=== PATIENT | female | born 1975 | race African-American/Black ===

== ENCOUNTER 2018-07-22 08:56 | Emergency (ER) | payer OTHER ==
--- NOTE | 2018-07-22 10:42 | RAD ---
FRadiograph chest one view: 07/22/2018 HISTORY: 42-year-old female with chest congestion. FINDINGS: The cardiac shadow appears enlarged. This is at least in part due to magnification, due to lordotic a ngulation positioning. There is no pulmonary venous congestion. Lungs are clear. No pneumothorax. Lat eral costophrenic angles are sharp. IMPRESSION: No acute pulmonary findings
[2018-07-22 10:43] LABS: #Eosinphils 0.1 thou/uL (0.0-0.7); #Monocytes 0.6 thou/uL (0.11-0.59); #Neutrophils 4.3 thou/uL (1.40-6.50); %Basophils 0.6 % (0.0-1.0); %Eosinophils 1.7 % (0.0-10.0); %Lymphocytes 28.2 % (21.0-51.0); %Monocytes 8.7 % (0.0-10.0); %Neutrophils 60.8 % (42.0-75.0); Hemoglobin 10.5 g/dL (12.0-16.0); Mean Corpuscular HGB CONC 31.7 g/dL (32.0-36.0); Mean Corpuscular Hemoglobin 27.6 pg (27.0-31.0); Mean Corpuscular Volume 87.2 fL (78.0-98.0); Mean Platelet Volume 6.1 fL (7.4-10.4); Platelet Count 426 thou/uL (130-400); RBC Distribution Width 13.1 % (11.5-14.5); Red Blood Cell (RBC) Count 3.81 mill/uL (4.20-5.40); White Blood Cell (WBC) Count 7.1 thou/uL (4.8-10.8)
[2018-07-22 11:08] LABS: ALT (SGPT) 9 U/L (8-55); AST (SGOT) 12 U/L (5-34); Albumin 3.7 g/dL (3.5-5.0); Alkaline Phosphatase 108 U/L (40-150); Anion Gap 10 mmol/L (10-20); BUN (Urea Nitrogen) 9 mg/dL (7.0-18.7); Bilirubin, Total 0.5 mg/dL (0.2-1.2); Calc. Creatinine Clearance 0 mL/min (70-130); Carbon Dioxide 29 mmol/L (22-29); Chloride 104 mmol/L (98-107); Estimated GFR-MDRD 88; Globulin 3.7 g/dL (2.4-3.5); Glucose 99 mg/dL (70-105); Potassium 3.9 mmol/L (3.5-5.1); Protein, Total 7.4 g/dL (6.0-8.3); Sodium 139 mmol/L (136-145)
--- NOTE | 2018-07-22 13:39 | CT ---
FCT pulmonary angiogram with contrast: 07/22/2018 HISTORY: 42-year-old female with chest pain TECHNIQUE: 3-D reconstructions. Isovue. FINDINGS: No thoracic aortic aneurysm or dissection. No pulmonary thromboembolism. Cardiomegaly. No pleural eff usion or pneumothorax. No consolidation or pneumothorax. No mediastinal or hilar significant lymphade nopathy. IMPRESSION: 1. No pulmonary thromboembolism. 2. Cardiomegaly.
== END 2018-07-22 13:58 | disposition home or self-care (01) ==
LOC: ERS 08:56
DX: I51.7 Cardiomegaly (principal); M25.512 Pain in left shoulder
CPT/HCPCS: 36415; 71045; 71275; 80053; 84484; 85025; 85379; 93005